=== PATIENT | male | born 1945 | race Caucasian/White ===

== ENCOUNTER 2021-12-21 10:19 | Outpatient (CLI) | payer MEDICARE, BC, SELFPAY ==
--- OUTSIDE RECORDS SUMMARY | 2021-12-04 10:31 | XMS_ITS | Continuity of Care Document ---
:1945 Author Allergies, Adverse Reactions, Alerts Allergen Type Severity Reaction Last Updated Verified Status Lisinopril Allergy Unknown cough May Yes Active 2020 Social History Smoking Status Status Start Date End Date Date of Observat ion Never smoked tobacco June 022020 (finding) 10:40am Observation Status Observation Response Date of Response History provided by Patient November 11, 2020 9:52a m Where do you live? Own home/apt November 11, 2020 9:52a m With whom do you live? Spouse November 11, 2020 9: 52am Additional Data Assigned Sex Male Problems Active Problems Medical Problem Onset Date Status Health care directive on file December 28, 2016 Active Medications Medication Status Dose Units Route Directions Qty Days Start End Ins tructions Date Date Acetaminophen Active 500-10 MG PO Every 6 100 November 00 Hours as , needed 2020 7:41am Amlodipine Active 5 MG PO Daily 30 Besylate Apixaban Active 5 MG PO Twice A Day 60 (Eliquis) 5 Mg TAB Atorvastatin Active 10 MG PO Every 48 JAYESH RY OTHER Calcium Hours NIGHT Dofetilide Active 500 MCG PO Twice A Day Fluticasone Active 1 SPRAY EACH Twice A Day 1 Propionate NOSTR (Nasal) Atorvastatin Discontin 5 MG PO Bedtime November Calcium ued 2020 10:05a m Atorvastatin Discontin 10 MG PO Bedtime 09 September Calcium ued 2020 9:49am Atorvastatin Discontin Unknow PO Bedtime Decemb Calcium ued n Dose er 2019 9:49am Oxycodone Hcl Discontin 2.5-5 MG PO Every 4-6 42 November em As needed for pain: 2.5 mg mild-moderate pain, 5 mg severe. (Oxycodone ued Hours as Minimi ze, wean-off, discontinue as soon as possible. Hydrochloride needed 2020, ) 5 Mg TAB 7:41am 2020 9:24am Senna/Docusat Discontin 1-4 TAB PO Twice A Day 100 No Se ptem Hold e Sodium ued medication if (Senna S) 8.6 2020 14, experi encing Mg/50 Mg TAB 7:41am 2020 loose stools. 9:24am Tamsulosin Discontin 0.4 MG PO Daily Decemb Hcl (Flomax) ued er 0.4 Mg CAP 2019 9:49am Immunizations Immunization Event Date Not Given Dose Chief Clerk Shelter Lot Vac cine Reason Number Number Informatio n Statement (VIS) Deta il COVID-19 Moderna April 132020 COVID-19 Pfizer September 022020 COVID-19 Pfizer September 232020 Hepatitis A November 24, Adult 2003 Hepatitis A July 152005 Hepatitis B November 24, Adult 2003 Hepatitis B December 29, Adult 2003 Hepatitis B July 162005 Herpes Zoster August 192009 Influenza April 132002 Influenza June 25, 2004 Influenza April 152004 Influenza April 03, 2007 Influenza April 16, 2006 Influenza May 20, 2008 Influenza May 19, 2008 Influenza April 20, 2009 Influenza April 01, 2010 Influenza February 20, 2011 Influenza March 27, 2012 Influenza March 21, 2014 Influenza March 19, 2015 Influenza April 08, 2016 Influenza February 25, 2017 Influenza March 20, 2018 Influenza April 10, 2019 Influenza February 11, 2019 Prevnar Adult December 07, 2016 Pneumovax Adult April 132011 Pneumovax Adult September 20, 2018 Shingrix September 26, 2018 Shingrix December 20, 2019 Tetanus/Diptheri November 08, a 2002 Medical Equipment Device Date Implanted Device Details PINNACLE GRIPTION December 08, 2020 RONAK: [id number] Issuing Agency: [facility] Device Id: [id number] Expiration Date: 06-15-30 Lot Number: [id number] PINNACLE ALTRX December 08, 2020 RONAK: [id number] Issuing Agency: [facility] Device Id: [id number] Expiration Date: 10-21-29 Lot Number: [id number] December 08, 2020 RONAK: [id number] Issuing Agency: [facility] Device Id: [id number] Expiration Date: Lot Number: [id number] BIOLOX DELTA December 08, 2020 RONAK: [id number] Issuing Agency: [facility] Device Id: [id number] Expiration Date: 11-14-29 Lot Number: [id number] December 08, 2020 RONAK: [id number] Issuing Agency: [facility] Device Id: [id number] Expiration Date: Lot Number: [id number] Advance Directives Advance Directive Response Recorded Date/Time Has patient completed a Yes November 11, 2020 1 0:00am Health Care Directive? Insurance Providers Guarantor Ari Yang Address [address] [address] Contact Info. Home Phone: Payer Policy Id Coverage Id Subscriber's Subscriber Id Effective E xpiration Name Date Date Medicare [id number] Ari Yang 20 [employer] [id number] Ari Yang [place] [id number] Plan of Treatment Future Tests Future scheduled test information is unavailable Pending Tests Pending diagnostic test information is unavailable Future Visits Future appointment information is unavailable Referrals to Other Providers Referral information is unavailable Future Procedures Future procedure information is unavailable Future Medications Future medication information is unavailable Patient Instructions Acetaminophen (By mouth) Oxycodone, Rapid Release (By mouth) Senna (By mouth) Total Hip Replacement (DC)
== END 2021-12-21 10:20 | disposition home or self-care (01) ==
LOC: MRI 10:22
PROVIDERS: PCP Family Medicine; Visit Provider Physician Assistant
DX: C61 Malignant neoplasm of prostate (principal)
CPT/HCPCS: 72195